=== PATIENT | male | born 1950 | race Caucasian/White ===

== ENCOUNTER → 2025-06-01 07:34 | Outpatient (REF) | payer MEDICARE, OTHER, SELFPAY ==
[2025-06-01 08:20] LABS: Hematocrit 35.8 % (39.0-52.0); Hemoglobin 12.0 g/dL (13.0-18.0); Mean Corp Hgb Conc. 33.5 g/dL (33.0-37.0); Mean Corpuscular Volume 85.9 fL (80.0-94.0); Nucleated Red Blood Cells % 0 % (-); Platelet Count 231 10^3/uL (130-400); Red Cell Dist. Width 14.7 % (11.5-14.5)
[2025-06-01 08:26] LABS: INR 1.02; PT 13.9 Sec (11.4-14.6)
[2025-06-01 08:27] LABS: APTT 44.8 Sec (23.4-35.0)
[2025-06-01 09:29] LABS: Blood Urea Nitrogen 85 mg/dl (9-20); Calcium 8.7 mg/dl (8.4-10.2); Carbon Dioxide 17 mmol/L (22-30); Chloride 111 mmol/L (98-107); Glucose 138 mg/dl (70-99); Potassium 5.0 mmol/L (3.5-5.1); Sodium 136 mmol/L (135-145); eGFR 18.30
== END ==
LOC: SDSPAT 07:34
PROVIDERS: ATTENDING PHYSICIAN Surgery Vascular Surgery; FAMILY PHYSICIAN Internal Medicine; OTHER PHYSICIAN Internal Medicine Cardiovascular Disease
DX: N18.9 Chronic kidney disease, unspecified (principal)
CPT/HCPCS: 36415; 80048; 85025; 85610; 85730; 93005

== ENCOUNTER → 2025-06-06 09:46 | Outpatient (REF) | payer MEDICARE, OTHER, SELFPAY | LOC: RAD 09:46 | PROVIDERS: ATTENDING PHYSICIAN Surgery Vascular Surgery; FAMILY PHYSICIAN Internal Medicine; REFERRING PHYSICIAN Specialist | DX: N18.9 Chronic kidney disease, unspecified (principal); Z01.818 Encounter for other preprocedural examination | CPT/HCPCS: 93985 ==

== ENCOUNTER 2025-06-07 06:05 | Day surgery (SDC) | payer MEDICARE, OTHER, SELFPAY ==
[2025-06-01 07:56] VITALS: BMI 31.7
--- NOTE | 2025-06-01 12:20 | PTCARENOTE ---
BUN 85, Creatinine 3.4 and PTT 44.8 all collected on 06/01/25; Blanca at 's office was notified.
[2025-06-07] VITALS (15 sets, daily range): BP systolic 130–158; BP diastolic 62–75; BMI 31.1
[2025-06-07] MEDS: NSS 500 IV (06:44)
[2025-06-07] MEDS: BACTROBAN NASAL 1 GRAM NASAL (06:44)
[2025-06-07] MEDS: PERIDEX 0.12% ORAL RINSE 15 ML PO (06:44)
[2025-06-07 07:04] LABS: Glucose - Point of Care 311 mg/dl (70-99)
--- NOTE | 2025-06-07 07:18 | PTCARENOTE ---
Blood glucose this am-311. Dr. Thrasher notified when in to see patient. Ordered sliding scale of insulin. Patient to receive 6 units of insulin based on the sliding scale. Patient has his own insulin pen. Verified that insulin pen is same as what
is ordered with this RN and another RN. Per MD, patient is ok to use his own insulin pen. This RN watched patient administer his own insulin using his pen at 0718.
--- NOTE | 2025-06-07 07:33 | W.SUR.PREOP ---
Pre-Operative Surgical Note
-
I have examined this patient prior to the performance of the scheduled procedure.
The patient's condition is unchanged from the time of the current History and
Physical and the patient is able to undergo the scheduled procedure.
[2025-06-07 08:47] LABS: Glucose - Point of Care 335 mg/dl (70-99)
--- NOTE | 2025-06-07 08:57 | OR.RPT ---
Operative Report
Operative Report
Date of Operation: 06/07/2025
Pre Op Diagnosis: Advanced chronic kidney disease with anticipated need for hemodialysis
Post Op Diagnosis: Advanced chronic kidney disease with anticipated need for hemodialysis
Procedure: Creation of left upper extremity brachiocephalic arteriovenous fistula
Surgeon: Genaro Poe III, MD
Rug Sizer: Praful Cisneros MD PGY2
Anesthesia: General
Complications: None
Estimated Blood Loss: 5 cc
History and Indications for Procedure: 74-year-old male with advanced chronic kidney disease and anticipated need for hemodialysis.
Procedure in Detail: Timbo Sanchez was correctly identified and brought to the operating room. He was placed supine on the operating table with the left arm abducted 90 degrees on a side table. After adequate induction of anesthesia I performed
intraoperative ultrasound on the veins of the left arm. I identified and measured the cephalic vein from the antecubital fossa to the shoulder. The vein was of adequate quality and diameter for AV fistula creation. The left brachial artery was
also identified in the upper arm and proximal forearm. An appropriate skin incision was marked approximately 1 fingerbreadth below the skin crease at the antecubital fossa. The left hand and arm were circumferentially prepped and draped in usual
sterile fashion. Preoperative antibiotics were administered. A timeout procedure was performed with the nursing and anesthesia staff confirming the patient's identity as well as the nature and laterality of the procedure.
A transverse skin incision was made in the proximal forearm through the previously placed skin alyssa. A combination of electrocautery and sharp dissection was used to expose the cephalic vein. Branches were ligated and divided between silk ties and
metal clips. The brachial artery was exposed using sharp dissection. Proximal and distal control was obtained on the brachial artery with vessel loops. The distal end of the cephalic vein was ligated with a silk tie and then transected with
scissors. The vein was flushed with heparinized saline solution. The vein flushed easily with no resistance. A bulldog clamp was placed on the vein. The brachial artery vessel loops were secured. An arteriotomy was made with an 11 blade and
extended slightly proximally and distally with Tompkins scissors. The proximal and distal brachial artery were flushed with heparinized saline solution. An end-to-side anastomosis was created using a running 7-0 Prolene suture. Prior to the
completion of the anastomosis the brachial artery was allowed to temporarily forward bleed and backbleed. The area under the anastomosis was flushed with heparinized saline solution to remove any potential thrombus or debris. The anastomosis was
completed. The bulldog was removed from the vein. The proximal vessel loop was released first. After several heartbeats the distal vessel loop was released. There was an easily palpable thrill in the cephalic vein along its course in the upper
arm. The anastomotic suture line was closely inspected and hemostasis was achieved. Hemostasis was achieved in the wound bed. The wound was irrigated with saline solution. Local anesthesia was infiltrated into the skin and subcutaneous tissue
around the wound. The wound was closed in layers. Skin glue was applied.
At the conclusion of the case the patient had an easily palpable thrill in the cephalic vein in the upper arm. The patient had a palpable radial pulse at the wrist.
The patient tolerated the procedure well and was taken to the recovery room in good condition.
Attestation: I was present and responsible for the entire procedure
Signed:
Genaro Poe III, MD
[facility]
[phone] (cell)
[2025-06-07 09:12] LABS: Glucose - Point of Care 256 mg/dl (70-99)
[2025-06-07] MEDS: NOVOLOG vial 4 UNITS SC (09:27)
[2025-06-07 10:20] LABS: Glucose - Point of Care 180 mg/dl (70-99)
== END 2025-06-07 11:45 | disposition home or self-care (01) ==
LOC: CATH 06:05
PROVIDERS: ATTENDING PHYSICIAN Surgery Vascular Surgery; OTHER PHYSICIAN Internal Medicine Cardiovascular Disease; PRIMARYCARE PHYSICIAN Internal Medicine
DX: I12.9 Hypertensive chronic kidney disease with stage 1 through stage 4 chronic kidney disease, or unspecified chronic kidney disease (principal); E11.22 Type 2 diabetes mellitus with diabetic chronic kidney disease; N18.9 Chronic kidney disease, unspecified; Z79.4 Long term (current) use of insulin; Z79.899 Other long term (current) drug therapy
CPT/HCPCS: 36821; 82962